=== PATIENT | male | born 1990 | race Caucasian/White ===

== ENCOUNTER 2017-01-19 01:56 | Emergency (ER) | payer BC ==
[~2017-01-19] VITALS: Ht 177.8 cm; Wt 100.0 kg
[~2017-01-19 01:56] MED LIST: BACTRIM DS 8001 TAB PO; KEPPRA 500MG500 MG PO; NO HOME MEDICATIONS
[2017-01-19 01:58] VITALS: TEMP 98.1
[2017-01-19] MEDS ORDERED: AMOXICILLIN/CLA1 TA1 PO (02:21)
[2017-01-19] MEDS ORDERED: VOLTAREN 75 DR75 MG PO (02:21)
[2017-01-19 03:17] VITALS: BP 132/84; PULSE 76
== END 2017-01-19 03:08 | disposition home or self-care (01) ==
LOC: COL.ER 01:56
DX: L03.311 Cellulitis of abdominal wall (principal)
CPT/HCPCS: J0696